=== PATIENT | male | born 1970 | race Caucasian/White ===

== ENCOUNTER 2018-10-12 19:15 | Emergency (ER) | payer SELFPAY ==
[~2018-10-12] VITALS: Ht 152.4 cm; Wt 61.3 kg
[~2018-10-12 19:15] MED LIST: IBUP-1542 PO
[2018-10-12 19:23] VITALS: Ht 152.4 cm; Wt 61.3 kg
--- NOTE | 2018-10-12 19:46 | ERD ---
ER Documentation Chief Complaint Chief Complaint R shoulder pain after fall from skateboard HPI The patient is a 48-year-old male, presenting to the ER because of right shoulder pain after he fell off the skateboard around 4 PM. He denies any head injury, denies headache, neck pain, chest pain, dyspnea, abdominal pain, vomiting, dysuria, diarrhea. He smokes and drinks, denies illicit drug. He did not have tetanus for many years Past medical history/surgical history: None ROS All systems reviewed and are negative except as per history of present illness. Medications Home Meds Active Scripts Ibuprofen* (Motrin*) 600 Mg Tab, 600 MG PO Q6H PRN for PAIN AND OR ELEVATED TEMP, #20 TAB Prov:LESLYE MARRERO MD 10/12/18 Allergies Allergies: Coded Allergies: No Known Allergy (Verified Allergy, Unknown, 11/20/06) Physical Exam Vitals Vital Signs Date Temp Pulse Resp B/P (MAP) Pulse Ox O2 O2 Flow FiO2 Time Delivery Rate 10/12/18 88 16 153/88 98 Room Air 22:52 (109) 10/12/18 98 18 183/98 100 Nasal 2.0 21:35 (126) Cannula 10/12/18 100 31 186/97 99 Room Air 21:30 (126) 10/12/18 106 20 188/95 99 Nasal 2.0 21:25 (126) Cannula 10/12/18 100 18 193/94 100 Nasal 2.0 21:20 (127) Cannula 10/12/18 104 16 162/98 96 Room Air 21:15 (119) Nasal Cannula 10/12/18 111 179/89 95 Nasal 2.0 21:10 (119) Cannula 10/12/18 107 22 157/89 96 Nasal 2.0 21:05 (111) Cannula 10/12/18 100 2.0 21:04 10/12/18 97.6 104 20 154/101 99 19:23 (118) Physical Exam Const: No acute distress. Head: Atraumatic. Eyes: Normal Conjunctiva. Superficial 1 cm forehead laceration, no active bleeding ENT: Normal External Ears, Nose and Mouth. Neck: Full range of motion. No meningismus. Resp: Clear to auscultation bilaterally. Cardio: Regular rate and rhythm. Abd: Soft, non distended, normal bowel sounds, non tender. Skin: No petechiae or rashes. Back: No midline or flank tenderness. Ext: Right shoulder with deformity, no skin violation, palpable distal pulses Neur: Awake and alert. No focal deficit Psych: Normal Mood and Affect. Results 24 hrs Current Medications Medications Dose Sig/Nydia Start Time Status Last (Trade) Ordered Route PRN Stop Time Admin Dose Reason Admin Sodium 1,000 ml @ Q1H ONCE 10/12/18 DC 10/12/18 Chloride 1,000 mls/hr IV 20:30 10/12/18 20:18 21:29 0.5 mg ONCE STAT 10/12/18 DC 10/12/18 Hydromorphone IV 20:10 10/12/18 20:18 HCl 20:12 (Dilaudid) Propofol 200 mg ONCE ONCE 10/12/18 DC 10/12/18 (Diprivan) IV 21:00 10/12/18 21:48 21:01 Procedures/[place] [address] Radiology Main Line: [phone] DIAGNOSTIC IMAGING REPORT Patient: HANSA JIMENEZ : 1970 Age: 48 Sex: M MR #: [id number] DOS: 10/12/182101 Ordering MD: LESLYE MARRERO MD Location: E/R Room/Bed: PROCEDURE: XR right shoulder. CLINICAL INDICATION: post reduction TECHNIQUE: AP and lateral views of the right shoulder were performed. COMPARISON: DR MURRAY 10/12/2018 FINDINGS: Interval reduction of anterior shoulder dislocation, now properly aligned. Redemonstration of Hill-Sachs and Bankart fractures. Widening of the AC joint without subluxation of the clavicle. IMPRESSION: Reduced anterior shoulder dislocation, now properly aligned at the glenohumeral joint. Mild widening of the AC joint may be sequelae of low grade AC joint separation. Redemonstration of Hill-Sachs and Bankart fractures. RPTAT: HRGF Physician Hina Date Time Electronically viewed and signed by Physician Hina on 10/12/2018 21:17 RF/ CC: LESLYE MARRERO MD [id number] [place] [id number] Radiology Main Line: [phone] DIAGNOSTIC IMAGING REPORT Patient: HANSA JIMENEZ : 1970 Age: 48 Sex: M MR #: [id number] DOS: 10/12/181948 Ordering MD: LESLYE MARRERO MD Location: E/R Room/Bed: PROCEDURE: XR right shoulder. CLINICAL INDICATION: pain TECHNIQUE: 3 views of the right shoulder were performed. COMPARISON: None. FINDINGS: Anterior inferior dislocation of the humerus relative to the glenoid. There is a Hill-Sachs deformity in the humeral head and a mildly displaced fracture from the inferior glenoid. No soft tissue abnormality. IMPRESSION: Anterior shoulder dislocation. Hill-Sachs deformity in the humeral head. Small mildly displaced Bankart fracture from the inferior glenoid. RPTAT: HRGF Physician Hina Date Time Electronically viewed and signed by Physician Hina on 10/12/2018 20:24 RF/ CC: LESLYE MARRERO MD [id number] MEDICAL MAKING DECISION: The patient is a 48-year-old male, presenting with acute forehead laceration, acute right shoulder dislocation and fracture The differential diagnoses considered include but are not limited to dislocation, fracture, internal derangement He was pretreated with 1 L normal saline, 0.5 mg IV, tetanus injection Laceration Repair by me: Anesthesia: None Location: forehead Tendon/Joint/Nerves: No injury Foreign body: None detected after copious irrigation and exploration Technique: Tissue adhesive Complexity: No subcutaneous sutures/mucosal repair/edge excision Post Closure Length: 1 cm Patient's bleeding was easily controlled in the department and there is no indication of anemia. No evidence of compartment syndrome, neurologic injury, vascular injury, open joint, tendon laceration, or foreign body. Patient is appropriate for outpatient follow up. 48 hour wound check. Scar minimization instructions given. X-ray Shoulder 3V Interpreted by radiologist: Bones: Joints: Anterior dislocation of the glenohumeral joint, Hill Sach/Bankart fx Foreign body: None Procedural Sedation: Pre-assessment performed. See preceding complete history and physical for details. Time out performed. See sedation documentation for details. Medication(s): propofol 30 mg x2 2-3 min apart Complications: No hypoxic or apneic events Recovered without incident. Greater than 15 minutes of face to face time included in sedation and recovery. Shoulder Reduction by me: Anesthesia: Location: rt shoulder Technique: External rotation Results: Taoism of normal anatomic positioning Compl: Neurovascularly intact post procedure. Sling Assessment: Neurovascularly intact post sling placement with good fit. Post-reduction X-ray Shoulder 3V Interpreted by radiologist: Bones: Joints: Relocation of previously noted dislocation, Hill Sach/Bankart fx Foreign body: None Departure Diagnosis: Primary Impression: Shoulder dislocation Additional Impressions: Shoulder fracture, right Forehead laceration Condition: Good Comments I discussed the findings with the patient. I advised the patient to follow-up with the oncall orthopedist Dr. Horvath in about 1-2 days, sooner if needed and return if any concern. The patient's blood pressure was elevated (>120/80) but appears stable without evidence of hypertension emergency or urgency. The patient was counseled about the risks of hypertension and urged to pursue outpatient monitoring and therapy within a week with their primary care physician. Disclaimer: Inadvertent spelling and grammatical errors are likely due to EHR/dictation software use and do not reflect on the overall quality of patient care. Also, please note that the electronic time recorded on this note does not necessarily reflect the actual time of the patient encounter. LESLYE MARRERO MD Oct 12, 2018 19:46
[2018-10-12] MEDS ORDERED: HYDROmorphONE 0.5 MG/0.5 ML SYG IV STA (20:10)
[2018-10-12] MEDS ORDERED: SOD CHLORIDE 0.9% 1,000 ML IV ONE (20:30)
[2018-10-12] MEDS ORDERED: PROPOFOL 200 MG INJ IV ONE (21:00)
[2018-10-12 22:52] VITALS: BP 153/88; PULSE 88; RESP 16
== END 2018-10-12 23:25 | disposition home or self-care (01) ==
LOC: E/R 19:15
DX: S43.014A Anterior dislocation of right humerus, initial encounter (principal); S01.81XA Laceration without foreign body of other part of head, initial encounter; V00.131A Fall from skateboard, initial encounter; Y92.9 Unspecified place or not applicable
CPT/HCPCS: 12011; 23650; 73030; 94770; 96374; 99285; J1170; J7030